=== PATIENT | female | born 1975 | race Caucasian/White ===

== ENCOUNTER → 2016-08-02 | Day surgery (SDC) | payer OTHER ==
[2016-07-27 15:09] VITALS: Ht 153.7 cm; Wt 50.9 kg
[~2016-08-02] VITALS: Ht 153.7 cm; Wt 50.9 kg
[~2016-08-02] MED LIST: FLAX12003 PO; GLUCTAB7 PO; LIDOCAINE HCL 2% 2 ML VIAL (20MG/ML) ONE; MACA500C2 PO; MIDAZOLAM HCL 1 MG/ML 2ML VIAL ONE; MISCCAP80 PO; MULT-506 PO; OMEG10007 PO; ONDANSETRON INJ 2 MG/ML 2 ML VIAL ONE; PROPOFOL IV EMULSION 10 MG/ML 20 ML VIAL IV ONE; RANI150T3 PO
--- NOTE | 2016-08-02 08:41 | Endo History and Physical ---
History & Physical Date of Service: Aug 02, 2016. Chief Complaint: LLQ abdominal pain and Rectal bleeding Referring Physician: Dr. Saima MD History of Present Illness 40 yo CF who presents for colonoscopy secondary to LLQ abdominal pain and rectal bleeding. Past Medical History Reflux, Thrombophlebitis Past Surgical History Hx Cardiac Surgery: No Hx Internal Defibrillator: No Hx Pacemaker: No Hx Abdominal Surgery: Yes (HYMENECTOMY,COLPORRHAPHY (PEVIC AND VAGINAL REPAIR)) Hx of Implantable Prosthesis: No Hx Post-Op Nausea and Vomiting: Yes Hx Cancer Surgery: No Hx Thoracic Surgery: No Hx Orthopedic: No Hx Urinary Tract Surgery: No Family History Colon CA, Polyp Social History Smoking Status: Never Smoker Hx Substance Use: No Hx Alcohol Use: Yes (OCCASIONAL) Allergies Coded Allergies: No Known Allergies (Verified , 07/27/16) Current Medications Reported Home Medications Medications Dose Route/Sig Max Daily Dose Days Date Category Beverley (Beverley Root) 500 Mg Cap 2 Cap PO QAM 07/27/16 Reported Zantac (Ranitidine HCl) 150 Mg Tab 150 Mg PO BID 07/27/16 Reported Multivitamin (Multivitamins) Tab 1 Tab PO QAM 07/27/16 Reported Glucosamine Chondroitin (Ynbayehxwsb-Pxcegslbaok-Cpp C-) 1 Tab Tab 1 Tab PO QAM 07/27/16 Reported Flaxseed Oil (Flaxseed (Linseed)) 1 Cap Cap 1 Cap PO QAM 07/27/16 Reported Terlton-3 (Fish Oil) 1 Ea Cap 1 Cap PO QAM 07/27/16 Reported Probiotic (Probiotic Product) 1 Cap Cap 1 Cap PO QAM 07/27/16 Reported Vital Signs Weight (Kilograms): 50.91 Height (Feet): 5 Height (Inches): 0.5 Physical Exam General Appearance: WD/WN, no apparent distress Respiratory/Chest: Auscultation: breath sounds normal Cardiovascular: Heart Auscultation: RRR Abdomen: Bowel Sounds: normal Inspection & Palpation: soft, non-distended, no tenderness, guarding & rebound Assessment and Plan Assessment: 40 yo CF who presents for colonoscopy secondary to LLQ abdominal pain and rectal bleeding. Plan: Proceed with colonoscopy.
--- NOTE | 2016-08-02 09:32 | GI REPORT ---
Procedure Date: 08/02/2016 8:55 AM Procedure: Colonoscopy Indications: Abdominal pain in the left lower quadrant, Rectal bleeding Medicines: Monitored Anesthesia Care Complications: No immediate complications. Estimated Blood Loss: Estimated blood loss: none. Procedure: Pre-Anesthesia Assessment: - Prior to the procedure, a History and Physical was performed, and patient medications and allergies were reviewed. The patient's tolerance of previous anesthesia was also reviewed. The risks and benefits of the procedure and the sedation options and risks were discussed with the patient. All questions were answered, and informed consent was obtained. Prior Anticoagulants: The patient has taken no previous anticoagulant or antiplatelet agents. ASA Grade Assessment: I - A normal, healthy patient. After reviewing the risks and benefits, the patient was deemed in satisfactory condition to undergo the procedure. After I obtained informed consent, the scope was passed under direct vision. Throughout the procedure, the patient's blood pressure, pulse, and oxygen saturations were monitored continuously. The scope was introduced through the anus and advanced to the terminal ileum. The colonoscopy was performed without difficulty. The patient tolerated the procedure well. The quality of the bowel preparation was good. The terminal ileum, ileocecal valve, appendiceal orifice, and rectum were photographed. Findings: A 5 mm post polypectomy scar was found in the sigmoid colon. There was residual polypoid tissue. Biopsies were taken with a cold forceps for histology. Non-bleeding internal hemorrhoids were found during retroflexion. The hemorrhoids were small. Impression: - Post-polypectomy scar in the sigmoid colon. Biopsied. - Non-bleeding internal hemorrhoids. Recommendation: - Resume previous diet. - Continue present medications. - Repeat colonoscopy for surveillance based on pathology results. - Return to primary care physician as previously scheduled. Ismael Garcia DO 08/02/2016 9:32:46 AM This report has been signed electronically. Note Initiated On: 08/02/2016 8:55 AM I attest to the content of the Intraoperative Record and orders documented therein, exceptions below
--- NOTE | 2016-08-02 09:33 | Discharge Instructions ---
Endoscopy Patient Instructions Date / Procedure(s) Performed Aug 02, 2016. Colonoscopy Allergy Information Coded Allergies: No Known Allergies (Verified , 07/27/16) Discharge Date / Findings Aug 02, 2016. Internal hemorrhoids Scar from prior polypectomy site s/p biopsy Medication Instructions OK to resume all medications today as prescribed. Reported Home Medications Medications Dose Route/Sig Max Daily Dose Days Date Category Beverley (Beverley Root) 500 Mg Cap 2 Cap PO QAM 07/27/16 Reported Zantac (Ranitidine HCl) 150 Mg Tab 150 Mg PO BID 07/27/16 Reported Multivitamin (Multivitamins) Tab 1 Tab PO QAM 07/27/16 Reported Glucosamine Chondroitin (Gwfwhfxbnnc-Fimerofwvpz-Aox C-) 1 Tab Tab 1 Tab PO QAM 07/27/16 Reported Flaxseed Oil (Flaxseed (Linseed)) 1 Cap Cap 1 Cap PO QAM 07/27/16 Reported Mercedes-3 (Fish Oil) 1 Ea Cap 1 Cap PO QAM 07/27/16 Reported Probiotic (Probiotic Product) 1 Cap Cap 1 Cap PO QAM 07/27/16 Reported Provider Instructions Activity Restrictions - No exercising or heavy lifting for 24 hours. - Do not drink alcohol the day of the procedure. - Do not drive a car or operate machinery until the day after the procedure. - Do not make any important decisions or sign important papers in 24 hours after the procedure. Following Day: - Return to full activity which may include returning to work/school. Diet Start your diet with liquids and light foods (jello, soup, juice, toast). Then eat your usual diet if not nauseated. Treatment For Common After Affects For mild abdominal pain, bloating, or excessive gas: - Rest - Eat lightly - Lie on right side Follow-Up Information Follow-up with Dr. Wayne Landaverde as scheduled Anesthesia Information What You Should Know You have had a procedure that required some medicine to reduce anxiety and discomfort. This treatment is called moderate sedation. After receiving the treatment, you may be sleepy, but you will be able to breathe on your own. The effects of the treatment may last for several hours. Follow these instructions along with Activity/Diet recommendations noted above: * Do NOT do anything where dizziness or clumsiness would be dangerous. * Rest quietly at home today, then you can be up and about tomorrow. * Have a responsible person stay with you the rest of today. * You may have had an I.V. today. If so, you may take the dressing off later today. Recommendations Call your doctor if: * Trouble breathing * Continuous vomiting for more than 24 hours * Temperature above 101 degrees * Severe abdominal pain or bloating * Pain not relieved by pain medicine ordered * There is increased drainage or redness from any incision * A large amount of rectal bleeding greater than 2-3 tablespoons. (If you had a polyp/s removed or have hemorrhoids, a small amount of blood - from the rectum is to be expected.) * You have any unanswered questions or concerns. IN THE EVENT OF A SERIOUS EMERGENCY, GO TO THE NEAREST EMERGENCY ROOM Your discharge instructions were prepared by provider Ismael Garcia. Patient Instructions Signature Page [facility] Patient (or Guardian) Signature/Date: I have read and understand the instructions given to me by my caregivers. Caregiver/RN/Doctor Signature/Date: The above-named patient and/or guardian has received patient instructions on this date. + Original Patient Signature Page (only) stays with chart. Please make copy for patient.
[2016-08-02 10:28] VITALS: BP 104/63; PULSE 42; O2SAT 100
--- NOTE | 2016-08-02 12:31 | Anesthesiology Progress Note ---
Anesthesia Post Op Note Date & Time Aug 02, 2016 at 12:31 Vital Signs Pain Intensity: 0 Vital Signs Past 12 Hours Date Time Temp Pulse Resp B/P Pulse Ox O2 Delivery O2 Flow Rate FiO2 08/02/16 10:28 42 18 104/63 100 Room Air 08/02/16 09:59 48 16 102/74 100 Room Air 08/02/16 09:47 48 16 96/63 100 Room Air 08/02/16 09:37 51 16 96/60 100 Room Air 08/02/16 09:27 56 16 89/54 100 Room Air 08/02/16 08:42 36.2 55 16 115/56 100 Room Air Notes Mental Status: alert / awake / arousable Nausea / Vomiting: adequately controlled Pain: adequately controlled Airway Patency, RR, SpO2: stable & adequate BP & HR: stable & adequate Hydration State: stable & adequate Anesthetic Complications: no major complications apparent
== END | disposition home or self-care (01) ==
LOC: C.GI 08:22
PROVIDERS: ATTEND Internal Medicine
DX: R10.32 Left lower quadrant pain (principal); K62.5 Hemorrhage of anus and rectum; K64.8 Other hemorrhoids; Z98.890 Other specified postprocedural states; Z80.0 Family history of malignant neoplasm of digestive organs; K21.9 Gastro-esophageal reflux disease without esophagitis

== ENCOUNTER → 2016-08-23 | Outpatient (CLI) | payer OTHER ==
[~2016-08-23] MED LIST changes: -LIDOCAINE HCL 2% 2 ML VIAL (20MG/ML) ONE; -MIDAZOLAM HCL 1 MG/ML 2ML VIAL ONE; -ONDANSETRON INJ 2 MG/ML 2 ML VIAL ONE; +OPTIRAY 320 IV PRN; -PROPOFOL IV EMULSION 10 MG/ML 20 ML VIAL IV ONE
--- NOTE | 2016-08-23 12:26 | DIAGNOSTIC IMAGING REPORT ---
ABDOMEN AND PELVIS CT WITH IV AND ORAL CONTRAST CT DOSE: 317.85 mGycm HISTORY: Pelvic pain ABDOMINAL PAIN, LOWER LEFT QUAD TECHNIQUE: Multiaxial CT images of the abdomen and pelvis were performed following the use of intravenous and oral contrast. COMPARISON STUDY: None. FINDINGS: The lung bases are clear. The liver, spleen, gallbladder, pancreas, kidneys, and adrenal glands are within normal limits. No bowel wall thickening or obstruction. The pelvic organs are unremarkable. No suspicious lytic or blastic osseous lesions. Small bilateral 1 cm ovarian cyst. IMPRESSION: Small bilateral ovarian cysts. Otherwise negative study of the abdomen and pelvis . Electronically signed by: Clarence Jin M.D. 08/23/2016 12:25 PM Dictated Date/Time: 08/23/2016 12:21 PM
== END | disposition home or self-care (01) ==
LOC: C.CTS 11:40
PROVIDERS: ATTEND Internal Medicine
DX: R10.32 Left lower quadrant pain (principal)

== ENCOUNTER → 2017-08-29 | Outpatient (CLI) | payer OTHER ==
[~2017-08-29] MED LIST changes: -OPTIRAY 320 IV PRN
== END | disposition home or self-care (01) ==
LOC: C.PATHSPEC 10:24
PROVIDERS: ATTEND Family Medicine
DX: D23.5 Other benign neoplasm of skin of trunk (principal)